=== PATIENT | male | born 1985 | race Caucasian/White ===

== ENCOUNTER 2018-08-12 00:03 | Emergency (ER) | payer SELFPAY ==
[~2018-08-12] VITALS: Ht 180.3 cm; Wt 74.8 kg
[2018-08-12] MEDS ORDERED: PROMETHAZINE 25 MG/ML, 1ML IM STA (00:41)
[2018-08-12] MEDS ORDERED: PROMETHAZINE 25 MG/ML, 1ML ONE (00:48)
[2018-08-12] MEDS ORDERED: DIAZEPAM 5 MG TABLET ONE (00:48)
[2018-08-12] MEDS ORDERED: DIAZEPAM 5 MG TABLET PO ONE (01:00)
--- NOTE | 2018-08-12 01:27 | NUR ---
POC DISCUSSED. PT STATES HE FEEL "40% BETTER". DOOR CLOSED PER PTS REQUEST. PT DENIES FURTHER NEEDS AT THIS TIME. CALL LIGHT ON LAP.
--- NOTE | 2018-08-12 02:39 | NUR ---
PT RESTING. VSS. CALL LIGHT IN REACH
[2018-08-12 03:03] VITALS: BP 109/67
--- NOTE | 2018-08-12 03:03 | NUR ---
Patient given discharge instructions and they have confirmed that they understand the instructions. Patient ambulatory with steady gait.
== END 2018-08-12 03:05 | disposition home or self-care (01) ==
LOC: ED 03:00
DX: F41.1 Generalized anxiety disorder (principal); F12.10 Cannabis abuse, uncomplicated
CPT/HCPCS: 96372; 99284; J2550

== ENCOUNTER 2018-09-20 08:25 | Emergency (ER) | payer SELFPAY ==
[~2018-09-20] VITALS: Ht 180.3 cm; Wt 73.6 kg
--- NOTE | 2018-09-20 08:45 | NUR ---
Pt states he feels heart is racing from anxiety. Has occured before and was on anti-depressants but takes no meds at this time. Denies CP/SOB. EKG done in triage, quality assurance monitor placed.
[2018-09-20] MEDS ORDERED: LORazepam 1MG TABLET ONE (08:50)
[2018-09-20] MEDS ORDERED: ONDANSETRON ODT 8 MG ONE (08:50)
--- NOTE | 2018-09-20 08:54 | NUR ---
Medicated as per emar for anxiety/nausea. Report to ROBINA Mackey.
[2018-09-20] MEDS ORDERED: LORazepam 1MG TABLET PO ONE (09:00)
[2018-09-20] MEDS ORDERED: ONDANSETRON ODT 8 MG PO ONE (09:00)
[2018-09-20] MEDS ORDERED: PROMETHAZINE 25 MG/ML, 1ML IM ONE (10:30)
[2018-09-20] MEDS ORDERED: PROMETHAZINE 25 MG/ML, 1ML ONE (10:55)
[2018-09-20 12:17] VITALS: BP 106/63
== END 2018-09-20 12:20 | disposition home or self-care (01) ==
LOC: ED 09:02
DX: F41.1 Generalized anxiety disorder (principal); R06.4 Hyperventilation; R11.10 Vomiting, unspecified
CPT/HCPCS: 93005; 96372; 99284; J2550; Q0162

== ENCOUNTER 2018-11-01 08:44 | Emergency (ER) | payer OTHER ==
[~2018-11-01] VITALS: Ht 180.3 cm; Wt 70.0 kg
[2018-11-01 08:48] VITALS: BP 127/76
[2018-11-01] MEDS ORDERED: LORazepam 1MG TABLET ONE (09:10)
--- NOTE | 2018-11-01 09:12 | NUR ---
Report from Harika QUARLES. Pt medicated per MAR, denies other needs.
[2018-11-01] MEDS ORDERED: LORazepam 1MG TABLET PO ONE (09:30)
--- NOTE | 2018-11-01 09:55 | NUR ---
RECHECK PATIENT RESPONSE TO MEDICATION, SOME IMPROVEMENT IN ANXIETY. TALKED THROUGH BREATHING EXERCISES. DISCUSSED STRESSORS, INFORMED OF FINANCIAL RESOURCES FOR INSURANCE. AVSS.
--- NOTE | 2018-11-01 11:08 | NUR ---
TASK RN: Patient/Caregiver given discharge instructions and they have confirmed that they understand the instructions. Patient ambulatory with steady gait.
== END 2018-11-01 11:09 | disposition home or self-care (01) ==
LOC: ED 09:55
DX: F41.1 Generalized anxiety disorder (principal)
CPT/HCPCS: 99284